=== PATIENT | female | born 1955 | race Caucasian/White ===

== ENCOUNTER 2022-02-21 15:47 | Inpatient (IN) | payer MEDICAID, MEDICARE ==
[~2022-02-21] VITALS: Ht 157.5 cm; Wt 67.6 kg
[2022-02-21 15:56] VITALS: BP_SYST 108
[2022-02-21] MEDS ORDERED: ENOXAPARIN SODIUM 60 MG/0.6 ML SYRINGE SUBCUT ONE (16:15)
[2022-02-21 16:40] LABS: BASOPHILS # (AUTO) 0.1 K/uL (0.0-0.2); BASOPHILS % (AUTO) 2.2 % (0.0-2.0); EOSINOPHILS # (AUTO) 0.1 K/uL (0.0-0.4); EOSINOPHILS % (AUTO) 2.1 % (0.0-4.0); HEMATOCRIT 39.6 % (36-48); HEMOGLOBIN 13.3 g/dL (12.0-16.0); LYMPHOCYTES # (AUTO) 0.6 K/uL (1.0-5.5); LYMPHOCYTES % (AUTO) 9.5 % (20.5-51.5); MEAN CORPUSCULAR HEMOGLOBIN 29 pg (27-31); MEAN CORPUSCULAR HGB CONC 34 % (32-36); MEAN CORPUSCULAR VOLUME 87 fL (79.0-98.0); MONOCYTES # (AUTO) 0.3 K/uL (0.0-1.0); MONOCYTES % (AUTO) 4.5 % (1.7-9.3); NEUTROPHILS # (AUTO) 4.9 K/uL (1.8-7.7); NEUTROPHILS % (AUTO) 81.7 % (40.0-70.0); PLATELET COUNT (AUTO) 177 K/uL (130-430); RED BLOOD CELL COUNT(AUTO) 4.54 MIL/uL (4.2-6.2); RED CELL DISTRIBUTION WIDTH 16.7 % (9.0-15.0); WHITE BLOOD COUNT (AUTO) 6.1 K/uL (4.8-10.8)
[2022-02-21 16:44] LABS: ANION GAP 7 (5-15); CALCIUM 9.1 mg/dL (8.4-11.0); CHLORIDE 106 mmol/L (98-107); CREATININE 1.67 mg/dL (0.55-1.30); GLUCOSE 179 mg/dL (70-99); UREA NITROGEN, BLOOD 51 mg/dL (8-21)
[2022-02-21 16:47] LABS: GFR AFRICAN AMERICAN 39 mL/min (>90)
[2022-02-21 16:52] LABS: ALANINE AMINOTRANSFERASE 17 U/L (12-78); ALBUMIN 3.3 g/dL (3.4-4.8); ASPARTATE AMINOTRANSFERASE 13 U/L (10-37); TOTAL BILIRUBIN 0.5 mg/dL (0.0-1.0)
[2022-02-21 16:56] LABS: INR 1.1 (0.8-1.2)
[2022-02-21] MEDS ORDERED: MORPHINE 4 MG INJ. 4 MG/ML VIAL ONE ×2 (17:06→21:20)
[2022-02-21] MEDS ORDERED: NITROGLYCERIN 1 INCH (GM) OINT. ONE (17:06)
[2022-02-21] MEDS ORDERED: MORPHINE 4 MG INJ. 4 MG/ML VIAL IVP ONE ×3 (17:15→23:30)
[2022-02-21 20:00] VITALS: BP_SYST 96
[2022-02-21] MEDS ORDERED: DEXTROSE 50% JECT 50 ML DISP.SYRIN IVP PRN (20:45)
[2022-02-21] MEDS: IPRATROPIUM/ALBUTEROL SULFATE 3 ML AMPUL.NEB (DUONEB) INH SCH (21:00)
[2022-02-21] MEDS ORDERED: IPRATROPIUM/ALBUTEROL SULFATE 3 ML AMPUL.NEB (DUONEB) INH PRN (21:00)
[2022-02-21] MEDS ORDERED: NITROGLYCERIN 0.4 MG TAB.SUBL SL PRN (21:00)
[2022-02-21] MEDS: ASPIRIN 81 MG TABLET(ECOTRIN) PO ONE ×2 (21:21→21:29)
[2022-02-21] MEDS ORDERED: MORP15TA60 PO (21:55)
[2022-02-21] MEDS ORDERED: ACET1TAB93 PO (21:56)
[2022-02-21] MEDS ORDERED: ONDANSETRON HCL 4 MG/2 ML VIAL IVP ONE (22:00)
[2022-02-21 22:59] VITALS: BP_SYST 113
[2022-02-21 23:03] VITALS: BP_SYST 99
[2022-02-21] MEDS ORDERED: ONDANSETRON HCL 4 MG/2 ML VIAL IVP PRN (23:15)
[2022-02-21] MEDS ORDERED: HYDROcodone/ACETAMIN 5-325 MG TAB (NORCO/ VICODIN) PO PRN (23:15)
[2022-02-21] MEDS ORDERED: NALOXONE HCL 0.4 MG/ML AMP (NARCAN) IVP PRN (23:15)
[2022-02-21] MEDS ORDERED: FLU VACC QS2022-23(6MOS UP)/PF 0.5 ML/SYR SYRINGE I.M. PRN (23:30)
[2022-02-21] MEDS ORDERED: NITROGLYCERIN 1 INCH (GM) OINT. TP ONE (23:30)
[2022-02-22] VITALS: BP_SYST 105
[2022-02-22] MEDS: MORPHINE 4 MG INJ. 4 MG/ML VIAL IVP PRN ×3 (00:30→20:24)
[2022-02-22 04:15] LABS: EOSINOPHILS # (AUTO) 0.3 K/uL (0.0-0.4); EOSINOPHILS % (AUTO) 7.3 % (0.0-4.0); HEMATOCRIT 39.7 % (36-48); LYMPHOCYTES # (AUTO) 1.3 K/uL (1.0-5.5); LYMPHOCYTES % (AUTO) 27.7 % (20.5-51.5); MEAN CORPUSCULAR HEMOGLOBIN 29 pg (27-31); MEAN CORPUSCULAR HGB CONC 33 % (32-36); MEAN CORPUSCULAR VOLUME 88 fL (79.0-98.0); MONOCYTES # (AUTO) 1.8 K/uL (0.0-1.0); MONOCYTES % (AUTO) 37.1 % (1.7-9.3); NEUTROPHILS # (AUTO) 1.3 K/uL (1.8-7.7); NEUTROPHILS % (AUTO) 27.9 % (40.0-70.0); PLATELET COUNT (AUTO) 158 K/uL (130-430); RED BLOOD CELL COUNT(AUTO) 4.51 MIL/uL (4.2-6.2); RED CELL DISTRIBUTION WIDTH 16.6 % (9.0-15.0); WHITE BLOOD COUNT (AUTO) 4.8 K/uL (4.8-10.8)
[2022-02-22 04:35] LABS: CALCIUM 8.8 mg/dL (8.4-11.0); CREATININE 1.56 mg/dL (0.55-1.30)
[2022-02-22 04:48] LABS: ALBUMIN 3.4 g/dL (3.4-4.8); PHOSPHORUS 5.4 mg/dL (2.7-4.5); PROTHROMBIN TIME 10.3 SECS (9.5-12.5); TOTAL BILIRUBIN 0.4 mg/dL (0.0-1.0)
[2022-02-22] MEDS: INSULIN REGULAR, HUMAN 100 UNITS/ML, 3 ML VIAL (humuLIN R) SUBCUT PRN ×4 (06:03→23:15)
[2022-02-22] MEDS: IPRATROPIUM/ALBUTEROL SULFATE 3 ML AMPUL.NEB (DUONEB) INH SCH ×4 (07:15→19:58)
[2022-02-22 08:30] VITALS: BP_SYST 104
[2022-02-22] MEDS: ATORVASTATIN 20 MG TABLET PO SCH (09:00)
[2022-02-22] MEDS: ASPIRIN 81 MG TABLET(ECOTRIN) PO SCH (09:00)
[2022-02-22] MEDS: SPIRONOLACTONE 25 MG TABLET (ALDACTONE) PO SCH ×2 (09:00→21:00)
[2022-02-22] MEDS: FUROSEMIDE 40 MG TABLET PO SCH ×3 (09:00→23:04)
[2022-02-22] MEDS: CARVEDILOL 6.25 MG TABLET (COREG) PO SCH ×2 (09:00→23:04)
[2022-02-22 12:00] VITALS: BP_SYST 105
[2022-02-22 14:17] LABS: BILIRUBIN,URINE NEGATIVE (NEGATIVE); BLOOD, URINE NEGATIVE (NEGATIVE); CLARITY/URINE CLEAR (CLEAR); COLOR,URINE YELLOW (YELLOW); GLUCOSE,URINE 3+ (NEGATIVE); KETONES,URINE NEGATIVE (NEGATIVE); LEUKOCYTE ESTERASE ,URINE NEGATIVE (NEGATIVE); NITRITE, URINE POSITIVE (NEGATIVE); PH,URINE 5.5 (5.0-8.0); PROTEIN URINE NEGATIVE (NEGATIVE); UROBILINOGEN,URINE 0.2 (0.2-1.0)
[2022-02-22 14:39] LABS: BARBITURATE, URINE NEGATIVE (NEG <=200); BENZODIAZEPINE, URINE NEGATIVE (NEG <=150); CANNABINOID, URINE NEGATIVE (NEG <=50); COCAINE, URINE NEGATIVE (NEG <=150); METHAMPHETAMINES SCREEN,URINE NEGATIVE (NEG <=500); OPIATE, URINE POSITIVE (NEG <=100); PHENCYCLIDINE SCREEN,URINE NEGATIVE (NEG <=25); UR TRICYCLIC ANTIDEPRESSANTS NEGATIVE (NEG <=300); URINE AMPHETAMINE NEGATIVE (NEG <=500); URINE METHADONE NEGATIVE (NEG <=200); URINE OXYCODONE SCREEN NEGATIVE (NEG <=100); URINE PROPOXYPHENE SCREEN NEGATIVE (NEG <=300)
[2022-02-22 15:00] LABS: BACTERIA,URINE MODERATE /HPF (None Seen); RBC,URINE 0-3 /HPF (0-3)
[2022-02-22 16:45] VITALS: BP_SYST 100
[2022-02-22 20:00] VITALS: BP_SYST 91
[2022-02-22] MEDS: GABAPENTIN 300 MG CAPSULE PO SCH (23:11)
[2022-02-23] VITALS: BP_SYST 98
[2022-02-23 04:14] VITALS: BP_SYST 124
[2022-02-23] MEDS: MORPHINE 4 MG INJ. 4 MG/ML VIAL IVP PRN ×3 (04:21→21:13)
[2022-02-23] MEDS: INSULIN REGULAR, HUMAN 100 UNITS/ML, 3 ML VIAL (humuLIN R) SUBCUT PRN ×3 (06:50→17:19)
[2022-02-23] MEDS: IPRATROPIUM/ALBUTEROL SULFATE 3 ML AMPUL.NEB (DUONEB) INH SCH ×4 (07:00→19:34)
[2022-02-23 07:46] LABS: ALBUMIN 3.4 g/dL (3.4-4.8); CALCIUM 7.8 mg/dL (8.4-11.0); CREATININE 1.57 mg/dL (0.55-1.30); PHOSPHORUS 5.3 mg/dL (2.7-4.5); TOTAL BILIRUBIN 0.4 mg/dL (0.0-1.0)
[2022-02-23 08:00] VITALS: BP_SYST 104
[2022-02-23 08:23] LABS: BASOPHILS % (AUTO) 0.7 % (0.0-2.0); EOSINOPHILS # (AUTO) 0.1 K/uL (0.0-0.4); EOSINOPHILS % (AUTO) 2.2 % (0.0-4.0); HEMATOCRIT 39.7 % (36-48); HEMOGLOBIN 13.2 g/dL (12.0-16.0); LYMPHOCYTES # (AUTO) 0.9 K/uL (1.0-5.5); MEAN CORPUSCULAR HEMOGLOBIN 29 pg (27-31); MEAN CORPUSCULAR HGB CONC 33 % (32-36); MEAN CORPUSCULAR VOLUME 88 fL (79.0-98.0); MONOCYTES # (AUTO) 0.4 K/uL (0.0-1.0); MONOCYTES % (AUTO) 7.8 % (1.7-9.3); NEUTROPHILS # (AUTO) 3.5 K/uL (1.8-7.7); NEUTROPHILS % (AUTO) 71.3 % (40.0-70.0); PLATELET COUNT (AUTO) 184 K/uL (130-430); RED BLOOD CELL COUNT(AUTO) 4.51 MIL/uL (4.2-6.2); RED CELL DISTRIBUTION WIDTH 16.6 % (9.0-15.0); WHITE BLOOD COUNT (AUTO) 4.9 K/uL (4.8-10.8)
[2022-02-23] MEDS: ASPIRIN 81 MG TABLET(ECOTRIN) PO SCH (08:26)
[2022-02-23] MEDS: ATORVASTATIN 20 MG TABLET PO SCH (08:26)
[2022-02-23] MEDS: CARVEDILOL 6.25 MG TABLET (COREG) PO SCH ×3 (08:30→21:14)
[2022-02-23] MEDS: SPIRONOLACTONE 25 MG TABLET (ALDACTONE) PO SCH ×3 (08:31→21:13)
[2022-02-23 12:00] VITALS: BP_SYST 108
[2022-02-23 16:00] VITALS: BP_SYST 103
[2022-02-23] MEDS: guaiFENesin/DEXTROMETHORPHAN 10 ML UDC PO PRN ×2 (16:52→21:12)
[2022-02-23 20:00] VITALS: BP_SYST 109
[2022-02-23] MEDS: FUROSEMIDE 40 MG TABLET PO SCH ×2 (21:00→21:14)
[2022-02-23] MEDS: GABAPENTIN 300 MG CAPSULE PO SCH (21:14)
[2022-02-24 01:00] VITALS: BP_SYST 129
[2022-02-24] MEDS: MORPHINE 4 MG INJ. 4 MG/ML VIAL IVP PRN ×4 (02:35→20:56)
[2022-02-24] MEDS: guaiFENesin/DEXTROMETHORPHAN 10 ML UDC PO PRN (06:08)
[2022-02-24] MEDS: INSULIN REGULAR, HUMAN 100 UNITS/ML, 3 ML VIAL (humuLIN R) SUBCUT PRN ×4 (06:10→21:10)
[2022-02-24 06:46] LABS: BASOPHILS % (AUTO) 0.7 % (0.0-2.0); EOSINOPHILS # (AUTO) 0.1 K/uL (0.0-0.4); EOSINOPHILS % (AUTO) 2.5 % (0.0-4.0); HEMATOCRIT 38.9 % (36-48); HEMOGLOBIN 12.7 g/dL (12.0-16.0); LYMPHOCYTES % (AUTO) 18.9 % (20.5-51.5); MEAN CORPUSCULAR HEMOGLOBIN 29 pg (27-31); MEAN CORPUSCULAR HGB CONC 33 % (32-36); MEAN CORPUSCULAR VOLUME 88 fL (79.0-98.0); MONOCYTES # (AUTO) 0.5 K/uL (0.0-1.0); MONOCYTES % (AUTO) 9.2 % (1.7-9.3); NEUTROPHILS # (AUTO) 3.8 K/uL (1.8-7.7); NEUTROPHILS % (AUTO) 68.7 % (40.0-70.0); PLATELET COUNT (AUTO) 168 K/uL (130-430); RED BLOOD CELL COUNT(AUTO) 4.41 MIL/uL (4.2-6.2); RED CELL DISTRIBUTION WIDTH 16.3 % (9.0-15.0); WHITE BLOOD COUNT (AUTO) 5.5 K/uL (4.8-10.8)
[2022-02-24 07:19] LABS: CALCIUM 8.5 mg/dL (8.4-11.0); CREATININE 1.26 mg/dL (0.55-1.30); PHOSPHORUS 4.4 mg/dL (2.7-4.5)
[2022-02-24] MEDS: IPRATROPIUM/ALBUTEROL SULFATE 3 ML AMPUL.NEB (DUONEB) INH SCH ×4 (07:20→21:06)
[2022-02-24] MEDS: ASPIRIN 81 MG TABLET(ECOTRIN) PO SCH (08:13)
[2022-02-24] MEDS: ATORVASTATIN 20 MG TABLET PO SCH (08:14)
[2022-02-24 09:10] VITALS: BP_SYST 109
[2022-02-24] MEDS: FUROSEMIDE 40 MG TABLET PO SCH ×3 (10:52→21:00)
[2022-02-24] MEDS: SPIRONOLACTONE 25 MG TABLET (ALDACTONE) PO SCH ×3 (10:53→21:00)
[2022-02-24] MEDS: CARVEDILOL 6.25 MG TABLET (COREG) PO SCH ×2 (10:54→20:53)
[2022-02-24 11:46] VITALS: BP_SYST 111
[2022-02-24 13:48] VITALS: BP_SYST 103
[2022-02-24 15:26] VITALS: BP_SYST 102
[2022-02-24 20:28] VITALS: BP_SYST 114
[2022-02-24] MEDS: GABAPENTIN 300 MG CAPSULE PO SCH (20:54)
[2022-02-25] VITALS: BP_SYST 104
[2022-02-25] MEDS: MORPHINE 4 MG INJ. 4 MG/ML VIAL IVP PRN ×3 (06:59→21:59)
[2022-02-25] MEDS: INSULIN REGULAR, HUMAN 100 UNITS/ML, 3 ML VIAL (humuLIN R) SUBCUT PRN ×4 (07:00→23:06)
[2022-02-25] MEDS: IPRATROPIUM/ALBUTEROL SULFATE 3 ML AMPUL.NEB (DUONEB) INH SCH ×4 (07:28→20:16)
[2022-02-25 08:00] VITALS: BP_SYST 101
[2022-02-25 08:03] LABS: BASOPHILS % (AUTO) 0.7 % (0.0-2.0); EOSINOPHILS # (AUTO) 0.2 K/uL (0.0-0.4); EOSINOPHILS % (AUTO) 3.5 % (0.0-4.0); HEMATOCRIT 39.4 % (36-48); LYMPHOCYTES # (AUTO) 0.9 K/uL (1.0-5.5); MEAN CORPUSCULAR HEMOGLOBIN 29 pg (27-31); MEAN CORPUSCULAR HGB CONC 33 % (32-36); MEAN CORPUSCULAR VOLUME 88 fL (79.0-98.0); MONOCYTES # (AUTO) 0.3 K/uL (0.0-1.0); MONOCYTES % (AUTO) 6.3 % (1.7-9.3); NEUTROPHILS # (AUTO) 3.3 K/uL (1.8-7.7); NEUTROPHILS % (AUTO) 70.5 % (40.0-70.0); PLATELET COUNT (AUTO) 151 K/uL (130-430); RED CELL DISTRIBUTION WIDTH 16.5 % (9.0-15.0); WHITE BLOOD COUNT (AUTO) 4.6 K/uL (4.8-10.8)
[2022-02-25 08:16] LABS: CALCIUM 8.1 mg/dL (8.4-11.0); CREATININE 1.36 mg/dL (0.55-1.30)
[2022-02-25] MEDS: SPIRONOLACTONE 25 MG TABLET (ALDACTONE) PO SCH ×2 (09:00→21:00)
[2022-02-25] MEDS: CARVEDILOL 6.25 MG TABLET (COREG) PO SCH ×2 (09:00→21:56)
[2022-02-25] MEDS: ATORVASTATIN 20 MG TABLET PO SCH (09:41)
[2022-02-25] MEDS: ASPIRIN 81 MG TABLET(ECOTRIN) PO SCH (09:42)
[2022-02-25] MEDS: FUROSEMIDE 40 MG TABLET PO SCH ×2 (09:42→21:00)
[2022-02-25 12:00] VITALS: BP_SYST 103
[2022-02-25] MEDS: guaiFENesin/DEXTROMETHORPHAN 10 ML UDC PO PRN ×2 (13:25→21:58)
[2022-02-25 16:00] VITALS: BP_SYST 112
[2022-02-25 20:00] VITALS: BP_SYST 108
[2022-02-25] MEDS: GABAPENTIN 300 MG CAPSULE PO SCH (21:54)
[2022-02-25] MEDS: LACTULOSE 20 GM/30 ML UDC PO SCH (23:08)
[2022-02-26] VITALS (7 sets, daily range): BP systolic 78–118
[2022-02-26] MEDS: MORPHINE 4 MG INJ. 4 MG/ML VIAL IVP PRN (01:29)
[2022-02-26] MEDS ORDERED: AZITHROMYCIN 500 MG/VIAL (ZITHROMAX) IV ONE (01:37)
[2022-02-26] MEDS ORDERED: cefTRIAXone 1 GM VIAL ONE (01:37)
[2022-02-26] MEDS: AZITHROMYCIN 500 MG in NS 250 ML IV SCH (02:26)
[2022-02-26] MEDS: cefTRIAXone 1 GM in D5W 50 ML IV SCH (02:27)
[2022-02-26] MEDS: INSULIN REGULAR, HUMAN 100 UNITS/ML, 3 ML VIAL (humuLIN R) SUBCUT PRN ×2 (06:51→18:05)
[2022-02-26] MEDS: IPRATROPIUM/ALBUTEROL SULFATE 3 ML AMPUL.NEB (DUONEB) INH SCH ×3 (07:00→15:00)
[2022-02-26] MEDS: ASPIRIN 81 MG TABLET(ECOTRIN) PO SCH (08:59)
[2022-02-26] MEDS: LACTULOSE 20 GM/30 ML UDC PO SCH (08:59)
[2022-02-26] MEDS: ATORVASTATIN 20 MG TABLET PO SCH (08:59)
[2022-02-26] MEDS: FUROSEMIDE 40 MG TABLET PO SCH (09:00)
[2022-02-26] MEDS: CARVEDILOL 6.25 MG TABLET (COREG) PO SCH (09:00)
[2022-02-26] MEDS: SPIRONOLACTONE 25 MG TABLET (ALDACTONE) PO SCH ×2 (09:00→21:00)
[2022-02-26] MEDS ORDERED: NS 500 ML IV ONE (10:30)
[2022-02-26 10:51] LABS: BASOPHILS % (AUTO) 0.1 % (0.0-2.0); EOSINOPHILS % (AUTO) 0.4 % (0.0-4.0); HEMATOCRIT 41.1 % (36-48); HEMOGLOBIN 13.4 g/dL (12.0-16.0); LYMPHOCYTES # (AUTO) 0.3 K/uL (1.0-5.5); MEAN CORPUSCULAR HEMOGLOBIN 29 pg (27-31); MEAN CORPUSCULAR HGB CONC 33 % (32-36); MEAN CORPUSCULAR VOLUME 88 fL (79.0-98.0); MONOCYTES # (AUTO) 0.3 K/uL (0.0-1.0); MONOCYTES % (AUTO) 3.4 % (1.7-9.3); NEUTROPHILS # (AUTO) 9.5 K/uL (1.8-7.7); NEUTROPHILS % (AUTO) 93.1 % (40.0-70.0); PLATELET COUNT (AUTO) 150 K/uL (130-430); RED BLOOD CELL COUNT(AUTO) 4.68 MIL/uL (4.2-6.2); RED CELL DISTRIBUTION WIDTH 16.7 % (9.0-15.0)
[2022-02-26 10:55] LABS: WHITE BLOOD COUNT (AUTO) 10.2 K/uL (4.8-10.8)
[2022-02-26 10:59] LABS: CALCIUM 8.4 mg/dL (8.4-11.0); CREATININE 2.04 mg/dL (0.55-1.30)
[2022-02-26 11:03] LABS: ALBUMIN 3.3 g/dL (3.4-4.8); TOTAL BILIRUBIN 0.7 mg/dL (0.0-1.0)
[2022-02-26] MEDS ORDERED: ALBUMIN HUMAN 25% 100 ML IV ONE (11:15)
[2022-02-27] VITALS: BP_SYST 85
[2022-02-27] MEDS: guaiFENesin/DEXTROMETHORPHAN 10 ML UDC PO PRN (00:10)
[2022-02-27] MEDS: GABAPENTIN 300 MG CAPSULE PO SCH (00:11)
[2022-02-27] MEDS: ACETAMINOPHEN 325 MG TABLET PO PRN ×2 (00:12→15:56)
[2022-02-27] MEDS: cefTRIAXone 1 GM in D5W 50 ML IV SCH (00:13)
[2022-02-27] MEDS: AZITHROMYCIN 500 MG in NS 250 ML IV SCH (00:14)
[2022-02-27] MEDS: IPRATROPIUM/ALBUTEROL SULFATE 3 ML AMPUL.NEB (DUONEB) INH SCH ×3 (07:45→15:21)
[2022-02-27 07:46] LABS: BASOPHILS % (AUTO) 0.5 % (0.0-2.0); EOSINOPHILS # (AUTO) 0.1 K/uL (0.0-0.4); EOSINOPHILS % (AUTO) 2.1 % (0.0-4.0); HEMATOCRIT 34.8 % (36-48); HEMOGLOBIN 11.5 g/dL (12.0-16.0); LYMPHOCYTES # (AUTO) 0.8 K/uL (1.0-5.5); LYMPHOCYTES % (AUTO) 13.2 % (20.5-51.5); MEAN CORPUSCULAR HEMOGLOBIN 29 pg (27-31); MEAN CORPUSCULAR HGB CONC 33 % (32-36); MEAN CORPUSCULAR VOLUME 87 fL (79.0-98.0); MONOCYTES # (AUTO) 0.7 K/uL (0.0-1.0); MONOCYTES % (AUTO) 11.4 % (1.7-9.3); NEUTROPHILS # (AUTO) 4.4 K/uL (1.8-7.7); NEUTROPHILS % (AUTO) 72.8 % (40.0-70.0); PLATELET COUNT (AUTO) 136 K/uL (130-430); RED BLOOD CELL COUNT(AUTO) 3.98 MIL/uL (4.2-6.2); RED CELL DISTRIBUTION WIDTH 16.8 % (9.0-15.0); WHITE BLOOD COUNT (AUTO) 6.1 K/uL (4.8-10.8)
[2022-02-27 07:50] LABS: CALCIUM 7.9 mg/dL (8.4-11.0); CREATININE 2.62 mg/dL (0.55-1.30)
[2022-02-27 07:57] VITALS: BP_SYST 87
[2022-02-27 08:47] VITALS: BP_SYST 87
[2022-02-27] MEDS: SPIRONOLACTONE 25 MG TABLET (ALDACTONE) PO SCH (09:00)
[2022-02-27] MEDS: LACTULOSE 20 GM/30 ML UDC PO SCH (09:00)
[2022-02-27] MEDS: ASPIRIN 81 MG TABLET(ECOTRIN) PO SCH (10:18)
[2022-02-27] MEDS: ATORVASTATIN 20 MG TABLET PO SCH (10:19)
[2022-02-27 11:39] VITALS: BP_SYST 90
[2022-02-27] MEDS: INSULIN REGULAR, HUMAN 100 UNITS/ML, 3 ML VIAL (humuLIN R) SUBCUT PRN (12:49)
[2022-02-27] MEDS ORDERED: LIP20 PO (14:23)
[2022-02-27] MEDS ORDERED: SPIR25TA PO (14:23)
[2022-02-27] MEDS ORDERED: Aspirin Ec PO (14:23)
[2022-02-27] MEDS ORDERED: DOXY100C PO (14:24)
[2022-02-27 15:26] VITALS: BP_SYST 93
[2022-02-27 15:27] VITALS: BP_SYST 111
== END 2022-02-27 17:10 | disposition home health service (06) | DRG 140 ==
LOC: SED 15:47 → STU 19:01 → EDBD 19:01 → STU 22:39 → SMU 02-24 17:37
PROVIDERS: ADMIT Internal Medicine; ATTEND Internal Medicine
DX: J44.1 Chronic obstructive pulmonary disease with (acute) exacerbation (principal); N17.0 Acute kidney failure with tubular necrosis; I50.43 Acute on chronic combined systolic (congestive) and diastolic (congestive) heart failure; I42.0 Dilated cardiomyopathy; R65.10 Systemic inflammatory response syndrome (SIRS) of non-infectious origin without acute organ dysfunction; I11.0 Hypertensive heart disease with heart failure; E11.40 Type 2 diabetes mellitus with diabetic neuropathy, unspecified; E11.51 Type 2 diabetes mellitus with diabetic peripheral angiopathy without gangrene; E66.9 Obesity, unspecified; J20.9 Acute bronchitis, unspecified; Z20.822 Contact with and (suspected) exposure to COVID-19; I25.10 Atherosclerotic heart disease of native coronary artery without angina pectoris; Z95.810 Presence of automatic (implantable) cardiac defibrillator; Z79.899 Other long term (current) drug therapy; Z68.27 Body mass index [BMI] 27.0-27.9, adult
CPT/HCPCS: 36415; 71045; 76770; 80048; 80053; 80061; 80307; 81000; 82962; 83036; 83735; 83880; 84100; 84484; 85025; 85379; 85610-TC; 85730-TC; 93005; 93306; 94640; 94760; 99291; G0378; J0456; J0696; J1650; J2270; J2405; J7040; J7050; J7060